=== PATIENT | female | born 1935 | race Caucasian/White ===

== ENCOUNTER 2016-10-08 17:49 | Emergency (ER) | payer MEDICARE ==
[~2016-10-08 17:49] MED LIST: ADVAIR DISKUS INH; ADVAIR250 INH; ADVIL PO; COMBIVENT RESPIM4 GM INH; FLONASE NAS; HABIT21 TOP; LEVAQUIN750 MG PO; P10 PO; P20 PO; P5 PO; PRILOSEC40 MG PO; PROVENT20 INH; PROVENTSOL INH; SPIRIVA INH; TESS PO; VENTOLIN HFA INH; ZANTAC 150 PO
== END 2016-10-08 18:15 | disposition left against medical advice (07) ==
LOC: ER 17:49
DX: Z53.21 Procedure and treatment not carried out due to patient leaving prior to being seen by health care provider (principal)
CPT/HCPCS: 80048; 83735; 83880; 84484; 85025; 85610; 85730; 93005